=== PATIENT | female | born 1995 | race Caucasian/White ===

== ENCOUNTER → 2019-12-02 | Outpatient (CLI) | payer BC | LOC: RT 08:21 | PROVIDERS: ATTEND Specialist | DX: R06.00 Dyspnea, unspecified (principal); R07.9 Chest pain, unspecified; R01.1 Cardiac murmur, unspecified; I37.1 Nonrheumatic pulmonary valve insufficiency; I37.0 Nonrheumatic pulmonary valve stenosis; R00.2 Palpitations | CPT/HCPCS: 94010; 94729 ==